=== PATIENT | female | born 1975 | race African-American/Black ===

== ENCOUNTER 2016-11-28 19:56 | Emergency (ER) | payer OTHER ==
[~2016-11-28] VITALS: Ht 177.8 cm; Wt 104.0 kg
[~2016-11-28 19:56] MED LIST: ALD2525; IBUP-1008; PREN1TAB49
[2016-11-29] MEDS ORDERED: HYDROCODONE/ACETAMINOPHEN 5/325MG TABLET PO ONE ×2 (00:15)
[2016-11-29 00:45] VITALS: BP 148/88
== END 2016-11-29 02:30 | disposition home or self-care (01) ==
LOC: ER 19:57
DX: S13.9XXA Sprain of joints and ligaments of unspecified parts of neck, initial encounter (principal); S39.012A Strain of muscle, fascia and tendon of lower back, initial encounter; I10 Essential (primary) hypertension; Z88.6 Allergy status to analgesic agent; Z88.2 Allergy status to sulfonamides; V43.52XA Car driver injured in collision with other type car in traffic accident, initial encounter; Y93.89 Activity, other specified; Y92.488 Other paved roadways as the place of occurrence of the external cause
CPT/HCPCS: 72100; 72125; 99284; L0172